=== PATIENT | female | born 1980 | race Two or more races ===

== ENCOUNTER 2017-04-04 22:00 | Emergency (ER) | payer OTHER, SELFPAY ==
[~2017-04-04] VITALS: Ht 154.9 cm; Wt 90.9 kg
[2017-04-04] MEDS ORDERED: MAALOX/HYOSCYAMINE/LIDOCAINE 45 ML BTL ONE (22:17)
[2017-04-04] MEDS ORDERED: SODIUM CHLORIDE 0.9% 1,000ML IVBOLUS ONE (22:30)
[2017-04-04] MEDS ORDERED: MAALOX/HYOSCYAMINE/LIDOCAINE 45 ML BTL PO ONE (22:30)
[2017-04-04] MEDS ORDERED: ONDANSETRON 2MG/ML, 2ML IVPush ONE (22:30)
[2017-04-04 22:47] LABS: ASPARTATE AMINO TRANSFERASE 19 U/L (15-37); BLOOD UREA NITROGEN 11 mg/dL (7-18)
[2017-04-04] MEDS ORDERED: MORPHINE SULFATE 4 MG/ML, 1ML ONE (22:48)
[2017-04-04] MEDS ORDERED: ONDANSETRON 2MG/ML, 2ML ONE (22:48)
[2017-04-04] MEDS: MORPHINE SULFATE 4 MG/ML, 1ML IVPush PRN (22:51)
[2017-04-04 22:58] LABS: HCG UR OBC PASS; PATH.CAST-FLAG NOT PRESENT; SPERM-FLAG NOT PRESENT; SRC-FLAG NOT PRESENT; XTAL-FLAG NOT PRESENT; YLC-FLAG NOT PRESENT
[2017-04-04 23:18] LABS: HEMATOCRIT 45.4 % (34.6-47.8); HEMOGLOBIN 15.5 g/dL (11.7-16.4)
[2017-04-05] MEDS ORDERED: MORPHINE SULFATE 4 MG/ML, 1ML ONE (01:33)
[2017-04-05] MEDS: MORPHINE SULFATE 4 MG/ML, 1ML IVPush PRN (01:37)
[2017-04-05 02:01] VITALS: BP 110/61
== END 2017-04-05 02:06 | disposition home or self-care (01) ==
LOC: ED 04-05 02:01
DX: K29.00 Acute gastritis without bleeding (principal)
CPT/HCPCS: 36415; 76700; 80053; 81001; 81025; 83690; 85025; 96361; 96374; 96375; 96376; 99285; J2405; J7030